=== PATIENT | female | born 1970 | race Caucasian/White ===

== ENCOUNTER 2017-08-29 21:00 | Emergency (ER) | payer MEDICAID ==
--- NOTE | 2017-08-29 21:12 | EDM.PDOC ---
ED HPI GENERAL MEDICAL PROBLEM - General Chief Complaint: General Stated Complaint: INJURED FINGER Time Seen by Provider: 08/29/17 21:00 Source of Information: Reports: Patient, RN History Limitations: Reports: No Limitations - History of Present Illness INITIAL COMMENTS - FREE TEXT/NARRATIVE: 47 yr female presents with right finger deformed after she was trying to stop her dogs from fighting. The third finger on right hand is bent and directed on top of 4th finger. She states this started around 7pm tonight and is starting to have some tenderness to the right wrist. Pt is alert and talkative and sitting on cot. She can't move the third finger. She does have good sensation to the tip of the finger. She does have good movement of other fingers, except the 4th finger as the broken finger is on top of it. Xray to wrist and finger. States allergic to codeine and makes her sick and allergic to keflex and this causes rash. right middle finger Pain Score (Numeric/FACES): 6 - Related Data Allergies Allergy/AdvReac Type Severity Reaction Status Date / Time No Known Allergies Allergy Verified 08/29/17 21:52 Home Meds: Home Meds NK [No Known Home Meds] 08/29/17 [History] ED ROS GENERAL - Review of Systems Review Of Systems: See Below Constitutional: Reports: No Symptoms HEENT: Reports: No Symptoms Respiratory: Reports: No Symptoms Cardiovascular: Reports: No Symptoms Musculoskeletal: Reports: Hand Pain, Other (broken or dislocated right third finger) Skin: Reports: Other (scratch to left arm.) Neurological: Reports: No Symptoms ED EXAM, GENERAL - Physical Exam Exam: See Below Exam Limited By: No Limitations General Appearance: Alert, No Apparent Distress Nose: Normal Inspection Throat/Mouth: Normal Inspection, Normal Voice, No Airway Compromise Head: Atraumatic, Normocephalic Neck: Supple, Non-Tender Respiratory/Chest: No Respiratory Distress, Lungs Clear, Normal Breath Sounds Cardiovascular: Regular Rate, Rhythm GI/Abdominal: Normal Bowel Sounds, Soft, Non-Tender Extremities: Normal Capillary Refill, Limited Range of Motion, Other (finger is deformed to right hand, third digit. ) Neurological: Alert, Oriented, Normal Cognition, Other (unable to move the third finger on right hand.) Psychiatric: Normal Affect, Normal Mood Skin Exam: Warm, Dry, Intact, Normal Color ED GENERAL MEDICAL PROCEDURES - Joint Reduction Site: Finger (R) (3rd finger) Sedation: Other (Toradol 30 mg IM and Morphine 2 mg Sq) Pre-procedure NV status: Normal Post-procedure NV status: Normal Technique: Traction/Counter Traction Number of Attempts: 1 Post-Reduction Imaging: Completely Reduced Joint Reduction Complications: No Progress/Comments: joint easily placed into alignment with finger. Pt tolerated well and no increase in pain with the procedure. Pt able to move finger in all directions and towards thumb. Good, strong pulse noted and capillary refill less than 2 seconds. Course - Vital Signs Last Recorded V/S: Last Vital Signs Temp 99.1 F 08/29/17 21:02 Pulse 69 08/29/17 23:23 Resp BP 142/86 H 08/29/17 23:23 Pulse Ox 100 08/29/17 23:23 - Orders/Labs/Meds Meds: Medications Discontinued Medications Generic Name Dose Route Start Last Admin Trade Name Freq PRN Reason Stop Dose Admin Ketorolac Tromethamine 30 mg 08/29/17 21:54 08/29/17 21:35 Toradol IM 08/29/17 21:55 30 mg ONETIME ONE Administration Morphine Sulfate 2 mg 08/29/17 21:54 08/29/17 21:47 Morphine SUBCUT 2 mg Q1H PRN Administration Pain - Re-Assessments/Exams Free Text/Narrative Re-Assessment/Exam: 08/29/17 22:10 MS 2 mg sc and Toradol 30 mg IM given. Waited for 30 minutes after medication given. Consult with Dr See and states to pull finger back into place. Pt rates pain 6 now and the finger and hand are relaxing. hand was dangled down to right side and finger was able to slide back into place. X-ray completed. Ice applied to area during the visit. Pt is able to move finger lateral, up and down movement with finger and moves finger to the thumb. Capillary refill noted and less than 2 sec. Nailbed is pink. Pt remains alert and talkative. States she was some nauseated after the medication, but improved now. Pt may be discharged after having something to eat and is ambulatory without side effects from the pain medication given. Recommend watching fingers for any decrease in sensation, tingling or numbness, discoloration or decrease in movement. Each day should improve for the swelling and any bruising to fingers. Departure - Departure Time of Disposition: 23:24 Disposition: Home, Self-Care 01 Condition: Good Clinical Impression: Dislocation, finger closed - Discharge Information Instructions: Closed Reduction for Metacarpal Dislocation, Finger or Thumb Dislocation, [id number] Forms: ED Department Discharge Additional Instructions: Follow up as needed in the clinic or the ER. clinic number is [phone] and the hospital is [phone]. Use ice several times a day for comfort, but only for 20 minutes at a time. Motrin (need to wait until after 4 am until you take this again) and tylenol for pain control at home as the bottle prescribes.
[2017-08-29] MEDS ORDERED: Morphine 2 MG/ML Syringe SUBCUT PRN (21:54)
[2017-08-29] MEDS ORDERED: Ketorolac 60 MG/2 ML SDV IM ONE (21:54)
--- NOTE | 2017-08-30 08:59 | CR ---
DATE OF SERVICE: 08/29/17 CLINICAL DATA: FINGER DEFORMITY RIGHT HAND: There is dislocation of the PIP joint of the 3rd digit with ventral dislocation of the base of the middle phalanx with respect to the head of the proximal phalanx. No fractures. No other significant findings. [id number] [facility]
--- NOTE | 2017-08-30 09:02 | CR ---
DATE OF SERVICE: 08/29/17 CLINICAL DATA: determine relocation RIGHT HAND: Comparison is made to a prior exam from earlier in the day. The dislocated PIP joint of the 3rd digit has been reduced. There is normal articular alignment. There is mild adjacent soft tissue swelling. No fractures. [id number] [facility]
== END 2017-08-29 23:24 | disposition home or self-care (01) ==
LOC: LB.ED 21:00
DX: S63.282A Dislocation of proximal interphalangeal joint of right middle finger, initial encounter (principal); X50.9XXA Other and unspecified overexertion or strenuous movements or postures, initial encounter
CPT/HCPCS: 26770; 73120; 73130; 96372; 99283; J1885; J2270

== ENCOUNTER 2019-09-18 17:40 | Emergency (ER) | payer SELFPAY ==
[~2019-09-18 17:40] MED LIST: Amoxicillin/Clavulanate K 875-125 MG Tab ONE
[2019-09-18] MEDS ORDERED: Diphtheria,Pertussis(Acell),Tetanus Vaccine 0.5 ML SDV inactive IM ONE (18:35)
--- NOTE | 2019-09-19 07:14 | ER ---
REASON FOR EMERGENCY ROOM VISIT: Dog bite. HISTORY: This 49-year-old woman incurred dog bites to both forearms while trying to break up a fight between her 2 dogs. She suffered 1 puncture to the extensor surface of her left forearm and a few small very superficial scratches. She has also suffered 4 more scattered puncture wounds to the right forearm. She denies any numbness or tingling distally. She states the dogs are both up to date on rabies vaccine. Her last tetanus toxoid is unknown. This occurred 5 hours before her arrival in the emergency department. PAST MEDICAL HISTORY: Noncontributory. ALLERGIES: TO CEPHALEXIN AND CODEINE. MEDICATIONS: None. REVIEW OF SYSTEMS: Pertinent positives and negatives as listed in the HPI. PHYSICAL EXAMINATION: EXTREMITIES: Her left forearm over the extensor surface proximally has a puncture wound that is approximately 1 mm. It is not bleeding at this time. There is some mild surrounding swelling which would be expected at this stage. No actual hematoma. Her left forearm puncture wound was oozing before she came in, but on inspection this appears to have stopped. Her right forearm has 5 scattered similar sized puncture wounds, none of which have an underlying hematoma. There is no active bleeding in any of these. None of these are larger than 1 mm in diameter. She has some mild diffuse tenderness over her forearm understandably. Distally, she has good pulses and sensation is intact. Intrinsic muscle function is intact in both the hands. IMPRESSION: Dog bites. PLAN: I explained to her that it is probably advantageous for her to take prophylactic antibiotics with a dog bite because of her high incidence of infection and that prophylactic antibiotics will reduce that chance of infection. She understands and agrees with this plan. Also, I have recommended a tetanus booster since she cannot recall when she has had one for certain. She understands and agrees with this plan. All questions were answered. She was educated as to symptoms and signs of infection. The wounds were cleaned with Hibiclens and dressed with Kerlix gauze after application of antibiotic ointment. MEENA/MARVA /[id number]
== END 2019-09-18 19:00 | disposition home or self-care (01) ==
LOC: LB.ED 17:40
DX: S51.852A Open bite of left forearm, initial encounter (principal); S51.851A Open bite of right forearm, initial encounter; Z88.1 Allergy status to other antibiotic agents; Z88.5 Allergy status to narcotic agent; Z23 Encounter for immunization; W54.0XXA Bitten by dog, initial encounter
CPT/HCPCS: 90471; 90715; 99283; 99283-25; A9270-GY

== ENCOUNTER 2020-12-26 12:53 | Emergency (ER) | payer MEDICAID ==
[2020-12-26] MEDS ORDERED: Labetalol 100 MG/20 ML MDV IVPUSH ONE (13:27)
[2020-12-26] MEDS ORDERED: Labetalol 100 MG/20 ML MDV ONE (13:51)
--- NOTE | 2020-12-26 14:11 | CT ---
DATE OF SERVICE: CLINICAL DATA: LOSS OF VISION IN RT EYE [address]: Multislice acquisition through the brain without IV contrast was performed. No priors. There are lucencies in the right basal ganglia consistent with old lacunar infarcts. There are periventricular lucencies bilaterally consistent with small vessel ischemic change. There is also a focal lucency in the right bella radiata region consistent consistent with an old microinfarct. No masses or mass effect. No intracranial hemorrhage. No evidence of acute or subacute infarcts. No osseous abnormalities. There is partial opacification of the the the ethmoid air cells consistent with chronic sinusitis. There is a rounded low-density lesion in the right sphenoid sinus consistent with a retention cyst or polyp. No other significant findings. MTDD
[2020-12-26] MEDS ORDERED: Metoprolol Tartrate 50 MG Tab ONE (14:21)
[2020-12-26] MEDS ORDERED: Labetalol 100 MG in Sodium Chloride 0.9% 100 ML IV SCH (14:30)
[2020-12-26] MEDS ORDERED: Ondansetron 4 MG/2 ML SDV ONE (15:58)
--- NOTE | 2020-12-26 16:04 | EDM.PDOC ---
ED HPI GENERAL MEDICAL PROBLEM - General Stated Complaint: LOSS OF VISION IN RIGHT EYE / NAUSEA Time Seen by Provider: 12/26/20 12:55 - History of Present Illness INITIAL COMMENTS - FREE TEXT/NARRATIVE: Pt comes to the ER with C/O vision loss in the Rt eye that started 2 days ago. She first noticed it when she woke up. She was out of the area and did not seek medical attention until today. She denies H/A, nausea, or recent injury. She only takes ASA prn for medication. - Related Data Allergies Allergy/AdvReac Type Severity Reaction Status Date / Time cephalexin Allergy Cannot Verified 01/08/18 21:54 Remember codeine Allergy Cannot Verified 01/08/18 23:36 Remember Home Meds: Home Meds NK [No Known Home Meds] 08/29/17 [History] Past Medical History - Past Health History Medical/Surgical History: Denies Medical/Surgical History HEENT History: Reports: Impaired Vision - Infectious Disease History Infectious Disease History: Reports: Chicken Pox Social & Family History - Family History Family Medical History: No Pertinent Family History - Caffeine Use Caffeine Use: Reports: Coffee ED ROS GENERAL - Review of Systems Review Of Systems: Comprehensive ROS is negative, except as noted in HPI. HEENT: Reports: Vision Change ED EXAM, GENERAL - Physical Exam Exam: See Below Eye Exam: Right Eye: Vision Changes (She can only see light with her Rt eye.), Bilateral Eye: PERRL Course - Orders/Labs/Meds Labs: Laboratory Tests 12/26/20 12/26/20 Range/Units 13:23 13:23 WBC 7.7 (4.0-11.0) K/uL RBC 4.27 (3.80-5.80) M/uL Hgb 13.3 (11.5-16.5) g/dL Hct 39.2 (37.0-47.0) % MCV 92 (76-96) fL MCH 31.1 (27.0-32.0) pg MCHC 33.9 (31.0-35.0) g/dL RDW 13.5 (11.0-16.0) % Plt Count 220 (150-500) K/uL MPV 11.1 H (6.0-10.0) fL Neut % (Auto) 65.4 (45.0-70.0) % Lymph % (Auto) 24.7 (20.0-40.0) % Creek % (Auto) 8.0 (3.0-10.0) % Eos % (Auto) 1.6 (1.0-5.0) % Baso % (Auto) 0.3 (0.0-0.5) % Neut # (Auto) 5.02 (2.00-7.50) K/uL Lymph # (Auto) 1.89 (1.50-4.00) K/uL Creek # (Auto) 0.61 (0.20-0.80) K/uL Eos # (Auto) 0.12 (0.04-0.40) K/uL Baso # (Auto) 0.02 (0.02-0.10) K/uL Sodium 138 (136-145) mmol/L Potassium 3.2 L (3.5-5.1) mmol/L Chloride 104 (98-107) mmol/L Carbon Dioxide 26.0 (21.0-32.0) mmol/L Anion Gap 11.2 (5.0-15.0) mmol/L BUN 16 (8-26) mg/dL Creatinine 1.07 H (0.55-1.02) mg/dL Est Cr Clr Drug Dosing TNP Estimated GFR (MDRD) 54 L (>60) MLS/MIN BUN/Creatinine Ratio 15.0 (6-25) Glucose 108 H (74-100) mg/dL Calcium 9.0 (8.5-10.1) mg/dL Total Bilirubin 0.3 (0.0-1.0) mg/dL AST 15 (15-37) U/L ALT 23 (12-78) U/L Alkaline Phosphatase 62 (46-116) U/L Total Protein 7.1 (6.4-8.2) g/dL Albumin 3.7 (3.4-5.0) g/dL Globulin 3.4 (2.2-4.2) g/dL Albumin/Globulin Ratio 1.1 (0.8-2.0) Meds: Medications Discontinued Medications Generic Name Dose Route Start Last Admin Trade Name Freq PRN Reason Stop Dose Admin Labetalol HCl 100 mg/ Sodium 120 mls @ 30 mls/hr 12/26/20 14:30 Chloride IV ASDIRECTED DEE Labetalol HCl 20 mg 10/18/21 13:27 12/26/20 13:51 Labetalol 100 Mg/20 Ml Mdv IVPUSH 12/26/20 13:28 20 mg ONETIME ONE Administration Protocol Labetalol HCl Confirm 12/26/20 13:51 Labetalol 100 Mg/20 Ml Mdv Administered 12/26/20 13:52 Dose 100 mg .ROUTE .STK-MED ONE Metoprolol Tartrate Confirm 12/26/20 14:21 Metoprolol Tartrate 50 Mg Tab Administered 12/26/20 14:22 Dose 50 mg .ROUTE .STK-MED ONE Ondansetron HCl Confirm 12/26/20 15:58 Ondansetron 4 Mg/2 Ml Sdv Administered 12/26/20 15:59 Dose 4 mg .ROUTE .STK-MED ONE - Re-Assessments/Exams Free Text/Narrative Re-Assessment/Exam: 12/26/20 15:[address] is negative for any acute changes. We gave her Labetalol 20 mg IV which brought her BP down to 168/94. I consulted Mary Valencia, [employer] who is in [place] today, she agreed to see the pt right away. We gave her Toprol 50 mg po and sent her to the [employer]. I also consulted by phone with Dr Montes, Opthamologist who agrees to discuss this case with Mary Valencia. I had the pt come back to the ER for BP re check - it is now 171/94. She informed me she was told she had a stroke in her eye, and was not sure there was anything she could do for it. I gave her a script for Toprol XL 50 mg a day, Lisinopril 10 mg a day, and Zofran to use prn for nausea that has now started slightly. I want the pt to follow up in the clinic tomorrow or Saturday for re check BP and vision, and refer her to Dr Montes. Departure - Departure Time of Disposition: 15:50 Disposition: DC/Tfer to Other 70 Condition: Good Clinical Impression: Vision loss of right eye - Discharge Information *PRESCRIPTION DRUG MONITORING PROGRAM REVIEWED*: No *COPY OF PRESCRIPTION DRUG MONITORING REPORT IN PATIENT ISSA: No Instructions: Hypertension, Adult, [id number] Referrals: PCP,None [Primary Care Provider] - Additional Instructions: Pt to be discharged to see [employer] Radha [facility] for emergency assessment the to return to ED if needed.
== END 2020-12-26 15:57 | disposition other institution (70) ==
LOC: LB.ED 12:53
DX: H54.61 Unqualified visual loss, right eye, normal vision left eye (principal); Z88.1 Allergy status to other antibiotic agents; Z88.5 Allergy status to narcotic agent
CPT/HCPCS: 36415; 70450; 80053; 85025; 96374; 99284; A9270; J3490

== ENCOUNTER 2022-01-24 08:57 | Emergency (ER) | payer OTHER, MEDICAID ==
[2022-01-24] MEDS ORDERED: Sodium Chloride 0.9% 1,000 ML IV ONE (09:25)
== END 2022-01-24 11:10 | disposition home or self-care (01) ==
LOC: LB.ED 08:57
DX: I95.1 Orthostatic hypotension (principal); N28.9 Disorder of kidney and ureter, unspecified; Z88.1 Allergy status to other antibiotic agents; Z88.5 Allergy status to narcotic agent; Z79.899 Other long term (current) drug therapy
CPT/HCPCS: 36415; 72040; 80053; 82947; 84484; 85025; 93005; 96360; 99284-25; J7030

== ENCOUNTER 2024-01-15 04:37 | Emergency (ER) | payer BC ==
[2024-01-15] MEDS ORDERED: Sodium Chloride 0.9% 10 ML Syringe FLUSH PRN (05:43)
[2024-01-15] MEDS: Labetalol 100 MG/20 ML MDV IVPUSH ONE ×2 (05:45→06:20)
[2024-01-15] MEDS: Labetalol 100 MG/20 ML MDV ONE (06:03)
[2024-01-15 06:17] LABS: HEMATOCRIT 39.9 % (37.0-47.0); HEMOGLOBIN 13.4 g/dL (11.5-16.5); MEAN CORPUSCULAR HEMOGLOBIN 30.6 pg (27.0-32.0); MEAN CORPUSCULAR HGB CONC 33.6 g/dL (31.0-35.0); RED BLOOD CELL COUNT 4.38 M/uL (3.80-5.80); RED CELL DISTRIBUTION WIDTH 13.8 % (11.0-16.0)
[2024-01-15 06:32] LABS: ANION GAP 14.7 mmol/L (5.0-15.0); BUN/CREATININE RATIO 23.1 (6-25); CALCIUM 9.2 mg/dL (8.5-10.1); CARBON DIOXIDE,CO2 25.3 mmol/L (21.0-32.0); CREATININE 1.17 mg/dL (0.55-1.02); EST CRCL DRUG DOSING (CG) 43.98 mL/min; MAGNESIUM 1.9 mg/dL (1.8-2.4)
[2024-01-15 06:48] LABS: TROPONIN I HIGH SENSITIVITY 4.8 pg/ml (<=60.4)
[2024-01-15] MEDS: hydrALAZINE 20 MG/ML SDV IVPUSH ONE (07:39)
[2024-01-15] MEDS: hydrALAZINE 20 MG/ML SDV ONE (07:52)
== END 2024-01-15 09:45 | disposition home or self-care (01) ==
LOC: LB.ED 04:37
DX: I16.0 Hypertensive urgency (principal); I11.9 Hypertensive heart disease without heart failure; F17.210 Nicotine dependence, cigarettes, uncomplicated; Z88.1 Allergy status to other antibiotic agents; Z88.5 Allergy status to narcotic agent; Z79.51 Long term (current) use of inhaled steroids; Z79.899 Other long term (current) drug therapy
CPT/HCPCS: 36415; 71045; 80048; 83735; 84484; 85027; 93005; 93010; 96374; 96375; 96376; 99283; 99285-25; J0360; J1921